=== PATIENT | female | born 1940 ===

== ENCOUNTER → 2022-04-07 12:15 | Outpatient (CLI) | payer MEDICARE, SELFPAY ==
--- NOTE | ~2022-04-07 | MR_ITS ---
EXAMINATION: MR brain/brain stem wo con DATE: 04/07/2022 13:00 INDICATION: Right facial weakness. TECHNIQUE: Magnetic resonance imaging (MRI) of the brain and brainstem was performed without intraven ous contrast. COMPARISON: None. FINDINGS: There is no intracranial hemorrhage, acute infarction, or abnormal intracranial mass lesion . There are scattered areas of nonspecific increased T2-weighted signal intensity in the cerebral whi te matter and lynne, which is within normal limits for the patient's age. The ventricles are normal in size. There are likely changes of ocular lens replacement surgeries. There is a mucous retention cys t in right maxillary sinus. The mastoid air cells are normal. IMPRESSION: 1. Normal aging brain. Reviewed, dictated and finalized at location A. [facility] IMPRESSION: 1. Normal aging brain.
== END ==
PROVIDERS: PCP Family Medicine; Visit Provider Family Medicine
DX: R09.89 Other specified symptoms and signs involving the circulatory and respiratory systems (principal); I48.91 Unspecified atrial fibrillation; R93.2 Abnormal findings on diagnostic imaging of liver and biliary tract; I10 Essential (primary) hypertension; R29.2 Abnormal reflex; R53.1 Weakness; M85.80 Other specified disorders of bone density and structure, unspecified site
CPT/HCPCS: 70551

== ENCOUNTER → 2022-04-08 10:29 | Outpatient (CLI) | payer MEDICARE, SELFPAY ==
--- NOTE | ~2022-04-08 | CT_ITS ---
CT ANGIOGRAM NECK History: Carotid bruit. Technique: Serial spiral axial images through the neck were obtained during arterial phase IV injecti on of 100 cc of Omnipaque 350. 3-D postprocessing and MIP images were then reconstructed on the [employer] workstation. Dose reduction technique was used on this scan by utilizing automated exposure control and iterative reconstruction technique. The dose-length product (DLP) was 456.50 mGy-cm. Findings: Bilateral vertebral arteries are patent. There are prominent calcified plaques at the orig in of the bilateral vertebral arteries, left worse than right. Bilateral common carotid, internal car otid, and extra carotid arteries are patent. There large calcified plaques of the bilateral carotid a rtery bifurcation regions. The proximal right internal carotid artery demonstrates approximately 70% stenosis relative to the normal distal artery lumen diameter. The proximal left internal carotid shanon ry demonstrates approximately 10% stenosis relative to the normal distal artery lumen diameter. Impression: No large vessel occlusion. Moderate to high-grade, approximately 70%, stenosis at the proximal right internal carotid artery. Low-grade (approximately 10%) stenosis of the proximal left internal carotid artery. Reviewed, dictated and finalized at location M. [employer] Impression: No large vessel occlusion. Moderate to high-grade, approximately 70%, stenosis at the proximal right inter nal carotid artery. Low-grade (approximately 10%) stenosis of the proximal left internal carotid ar
[2022-04-08 10:50] LABS: Estimated Glomerular Filt Rate 48
== END ==
PROVIDERS: PCP Family Medicine; Visit Provider Family Medicine
DX: R09.89 Other specified symptoms and signs involving the circulatory and respiratory systems (principal); I48.91 Unspecified atrial fibrillation; R93.2 Abnormal findings on diagnostic imaging of liver and biliary tract; I10 Essential (primary) hypertension; R29.2 Abnormal reflex; R53.1 Weakness; M85.80 Other specified disorders of bone density and structure, unspecified site; I65.23 Occlusion and stenosis of bilateral carotid arteries
CPT/HCPCS: 70498; Q9967

== ENCOUNTER 2022-06-05 09:53 | Outpatient (CLI) | payer MEDICARE, SELFPAY ==
--- NOTE | ~2022-06-05 | CT_ITS ---
EXAMINATION: CT chest abdomen pelvis w con DATE: 06/05/2022 11:20 INDICATION: Colon cancer. TECHNIQUE: Computed tomography (CT) of the chest, abdomen, and pelvis was performed with 100 mL Omnip aque 350 intravenous contrast. Automated exposure control and iterative reconstruction technique were employed. The dose-length product was 309.28 mGy-cm. COMPARISON: None. FINDINGS: CT CHEST: There is mild scarring at the lung apices. There is mild emphysema. There is mild atelectas is bilaterally. There is mild scarring at the lung apices. No pleural effusion. There is left atrial enlargement of the heart. There are coronary artery calcifications. No pericardial effusion. There ar e nodules in the thyroid measuring up to 6 mm, likely not clinically significant. CT ABDOMEN AND PELVIS: The liver demonstrates hypertrophy of left lateral segment and surface nodular ity, consistent with cirrhosis. The spleen is normal. There are changes of cholecystectomy. Calcifica tions in the pancreas are consistent with chronic pancreatitis. Right adrenal gland is normal. There is a 3.4 cm mass in left adrenal gland. There is cortical thinning of the kidneys. There are cysts in the kidneys measuring up to 8 mm on the left. There is diverticulosis of the colon without evidence of diverticulitis. There are changes of right hemicolectomy. There is a paraumbilical portacaval shun t. There is calcified atherosclerosis of the aorta and many of the other arteries. There are no patho logically enlarged lymph nodes. There is no free intraperitoneal fluid. There is thoracolumbar dextro scoliosis and severe spondylosis. IMPRESSION: 1. 3.4 cm left adrenal mass. The differential diagnosis includes adenoma and less likely metastatic d isease. Abdomen CT without and with contrast is recommended. 2. Cirrhosis of the liver with portal venous hypertension. Reviewed, dictated and finalized at location A. IMPRESSION: 1. 3.4 cm left adrenal mass. The differential diagnosis includes adenoma and le ss likely metastatic disease. Abdomen CT without and with contrast is recommend ed. 2. Cirrhosis of the liver with portal venous hypertension.
[2022-06-05 10:43] LABS: Estimated Glomerular Filt Rate 48
== END 2022-06-05 09:54 | disposition home or self-care (01) ==
PROVIDERS: PCP Family Medicine
DX: C18.9 Malignant neoplasm of colon, unspecified (principal); E27.9 Disorder of adrenal gland, unspecified; K74.60 Unspecified cirrhosis of liver; K76.6 Portal hypertension
CPT/HCPCS: 71260; 74177; Q9967